=== PATIENT | female | born 1985 | race Caucasian/White ===

== ENCOUNTER → 2017-04-22 | Outpatient (CLI) | payer BC ==
--- NOTE | 2017-04-22 11:11 | USB ---
Reason for exam: clinical finding. History: Family history of breast cancer in sister at age 30, breast cancer in mother at age 29, and breast cancer in 2 maternal aunts. Took hormonal contraceptives for 4 years beginning at age 17. Indicated problem(s): palpable abnormality in the right breast. Physical Findings: Nurse did not find any significant physical abnormalities on exam. US Breast BILAT Right breast ultrasound includes all four quadrants, the retroareolar region and axilla. Finding demonstrates no cystic or solid lesion seen. Left breast ultrasound includes all four quadrants, the retroareolar region and axilla. Finding demonstrates no cystic or solid lesion seen. These results were verbally communicated with the patient and result sheet given to the patient on 04/22/17. ASSESSMENT: Negative, BI-RAD 1 RECOMMENDATION: Breast MRI of both breasts in 2 years. (MRI of breasts every 2 years. Pelvic ultrasound yearly)
== END | disposition home or self-care (01) ==
LOC: RADUSWWP 09:39
PROVIDERS: ATTEND Family Medicine
DX: N63 Unspecified lump in breast (principal)

== ENCOUNTER → 2017-06-07 | Outpatient (CLI) | payer BC ==
--- NOTE | 2017-06-13 22:18 | BMR ---
EXAMINATION TYPE: MR breast BILAT wo/w con DATE OF EXAM: 06/07/2017 COMPARISON: Bilateral complete breast ultrasound dated 04/22/2017 and bilateral breast MRI dated 2013 as well as digital mammogram dated 10/16/2013. HISTORY: Family hx of breast ca, dense breast tissue. Palpable area at the 5:00 position palpated 2-3 years ago with prior negative MRI. After discussion with the physician's secretary to board of commissioners on 06/12/2017 it i s noted within the patient's chart she has a history of left-sided mastoiditis and breast-feeding. It is presumed that the patient is right-sided breast feeding only. TECHNIQUE: A series of fat and water weighted images in the long and short axis views of both breasts are obtained in conjunction with dynamic contrast MRI with subtraction technique. The patient was i njected with 6.5 mL intravenous Gadavist gadolinium contrast. Three-dimensional and additional post processing imaging is created on independent workstation and reviewed during official interpretation of this study. FINDINGS: The breasts are composed of heterogenous fibroglandular tissue and there is asymmetric (rig ht greater than left) marked background parenchymal enhancement, which limits sensitivity of the exam ination. Bilateral retroareolar ductal ectasia is demonstrated. No suspicious foci of enhancement are seen within the left breast. No suspicious left breast nonmass enhancement or mass enhancement. No evidence of intramammary, axillary, or internal mammary adenopath y. Marked enhancement of the right breast is thought to relate to unilateral breast-feeding and although no discrete focal masses seen sensitivity is markedly limited. IMPRESSION: BI-RADS 3- Probably benign finding. Extremely asymmetric unilateral background parenchymal enhancemen t within the right breast that is thought to be attributable to right breast feeding as the patient h as a history of left-sided mastitis and may not be breast-feeding on the left. This pattern can also be seen and unilateral diffuse breast cancer and therefore follow up MRI in 6 months is recommended o r sooner if cessation of breast-feeding occurs. Additionally if there is palpable abnormality diagnos tic mammogram and/or ultrasound could be performed.
== END ==
LOC: RADMRIMAIN 16:40
PROVIDERS: ATTEND Surgery
DX: Z08 Encounter for follow-up examination after completed treatment for malignant neoplasm (principal); Z80.3 Family history of malignant neoplasm of breast
CPT/HCPCS: 77059; 0159T; A9581

== ENCOUNTER → 2018-06-14 | Outpatient (CLI) | payer BC ==
--- NOTE | 2018-06-14 09:07 | BMR ---
EXAMINATION TYPE: MR breast BILAT wo/w con DATE OF EXAM: 06/14/2018 COMPARISON: Prior bilateral breast MRI June 07, 2017 BI-RADS 3. Complete bilateral breast ultras ound April 22, 2017 BI-RADS 1 HISTORY: Mastodynia per order. Prior abnormal mammogram left breast with family history of breast can cer and mom and sister as per patient. CONTRAST: Multiplanar, multisequence images of the breasts were acquired utilizing 6.5 mL intravenous Gadavist gadolinium contrast. TECHNIQUE: A series of fat and water weighted images in the long and short axis views of both breasts are obtained in conjunction with dynamic contrast MRI with subtraction technique. Three-dimensional and additional postprocessing imaging is created on independent workstation and reviewed during offi cial interpretation of this study. FINDINGS: Heterogeneously dense fibroglandular tissue is redemonstrated throughout both breasts. On c urrent study there is fairly symmetric moderate to marked background enhancement most prominent anter iorly in both breasts. There is marked interval improvement in retroareolar ductal ectasia on current study. Occasional tiny punctate cyst subareolar region is present bilaterally and T2-weighted images . There is more symmetric appearance to bilateral breast on current study. No suspicious intramammary adenopathy is seen on delayed post contrast images. No fat containing masses are evident. With regard to the right breast there is no suspicious enhancing mass or masslike enhancement. Chest wall is intact. Benign right axillary lymph nodes are present. With regard to the left breast there is no suspicious skin thickening. No enhancing mass is evident. No suspicious axillary adenopathy is seen. Benign subcentimeter left axillary lymph nodes are present . No suspicious incidental finding seen. IMPRESSION: No MRI evidence for invasive malignancy in either breast. BI-RADS 2 benign findings right breast BI-RADS 2 benign findings left breast Recommendation: Consider annual MRI surveillance based on patient's risk factors.
== END ==
LOC: RADMRIMAIN 07:38
PROVIDERS: ATTEND Family Medicine
DX: N64.4 Mastodynia (principal)
CPT/HCPCS: 77059; 0159T; A9581

== ENCOUNTER → 2019-08-31 | Outpatient (CLI) | payer OTHER ==
[2019-08-31 07:38] LABS: Basophils % (A) 0 %; Eosinophils # (A) 0.1 k/uL (0-0.7); Eosinophils % (A) 1 %; HCT 33.8 % (34.0-46.0); HGB 11.1 gm/dL (11.4-16.0); Lymphocytes # (A) 1.8 k/uL (1.0-4.8); Lymphocytes % (A) 29 %; MCH 27.4 pg (25.0-35.0); MCHC 32.7 g/dL (31.0-37.0); MCV 83.7 fL (80.0-100.0); Monocytes # (A) 0.4 k/uL (0-1.0); Monocytes % (A) 6 %; Neutrophils # (A) 3.7 k/uL (1.3-7.7); Neutrophils % (A) 62 %; Platelet Count 195 k/uL (150-450); RBC 4.04 m/uL (3.80-5.40); RDW 13.2 % (11.5-15.5); WBC 6.1 k/uL (3.8-10.6)
[2019-08-31 13:22] LABS: Estradiol 55.3 pg/mL; Luteinizing Hormone 16.2 mIU/mL
[2019-08-31 13:34] LABS: Follicle Stimulating Hormone 8.4 mIU/mL
[2019-08-31 13:36] LABS: Folate, Serum 9.5 ng/mL
[2019-08-31 13:37] LABS: % Iron Saturation 6.55 (12.00-45.00); African American GFR (CKD) 97.4 (60.0-200.0); Albumin 4.3 g/dL (3.80-4.90); Albumin/Globulin Ratio 2.05 (1.60-3.17); Anion Gap 7.7 mmol/L (4.00-12.00); Calcium 9.4 mg/dL (8.7-10.3); Carbon Dioxide 26.3 mmol/L (21.6-31.8); Chol/HDL Ratio 2.6; Ferritin 4.6 ng/mL (10.0-291.0); Globulin 2.1 g/dL (1.6-3.3); Potassium 4.5 mmol/L (3.5-5.5); Total Bilirubin 0.3 mg/dL (0.3-1.2); Total Protein 6.4 g/dL (6.2-8.2)
[2019-08-31 15:20] LABS: Hemoglobin A1C 5.5 % (4.0-6.0)
== END | disposition home or self-care (01) ==
LOC: LABWHC1 07:02
PROVIDERS: ATTEND Nurse Practitioner Family
DX: Z00.00 Encounter for general adult medical examination without abnormal findings (principal); N92.6 Irregular menstruation, unspecified; N89.8 Other specified noninflammatory disorders of vagina; R63.4 Abnormal weight loss
CPT/HCPCS: 36415; 80053; 80061; 82306; 82607; 82670; 82728; 82746; 83001; 83002; 83036; 83540; 83550; 84144; 84439; 84443; 85025

== ENCOUNTER 2020-02-04 06:07 | Emergency (ER) | payer OTHER ==
[2020-02-04 06:11] VITALS: BP 127/83; PULSE 91; RESP 20; TEMP 98.1
[2020-02-04] MEDS ORDERED: KETOROLAC 60 MG/2 ML VIAL IM STA (06:34)
[2020-02-04] MEDS ORDERED: ORPHENADRINE 30 MG/ML 2 ML VIAL IM STA (06:34)
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
[2020-02-04] MEDS ORDERED: ACET/COD 300 MG/30 MG STARTER PACK 6 TAB BTL PO STA (07:34)
== END 2020-02-04 07:48 | disposition home or self-care (01) ==
LOC: EC 06:07
DX: S13.4XXA Sprain of ligaments of cervical spine, initial encounter (principal); M62.838 Other muscle spasm; Z87.828 Personal history of other (healed) physical injury and trauma; Z87.891 Personal history of nicotine dependence; Z88.0 Allergy status to penicillin; Y04.2XXA Assault by strike against or bumped into by another person, initial encounter; Y92.009 Unspecified place in unspecified non-institutional (private) residence as the place of occurrence of the external cause; Y07.12 Biological mother, perpetrator of maltreatment and neglect
CPT/HCPCS: 72125; 70450; 96372 ×2; 99284; J2360; J1885

== ENCOUNTER → 2020-03-06 | Outpatient (CLI) | payer OTHER ==
--- NOTE | 2020-03-06 09:03 | US ---
EXAMINATION TYPE: US thyroid st tissue head/neck DATE OF EXAM: 03/06/2020 COMPARISON: NONE CLINICAL HISTORY: R59.0 Cervical lymphadenopathy. Enlarged lymph nodes. Two lymph nodes seen and the left neck and one on the right all measuring subcentimeter. IMPRESSION: Subcentimeter neck adenopathy.
== END | disposition home or self-care (01) ==
LOC: RADUSWWP 07:13
PROVIDERS: ATTEND Family Medicine
DX: R59.0 Localized enlarged lymph nodes (principal)
CPT/HCPCS: 76536

== ENCOUNTER → 2021-03-27 | Outpatient (CLI) | payer OTHER ==
--- NOTE | 2021-04-01 14:34 | MM ---
Reason for exam: screening (asymptomatic). Last mammogram was performed 7 years and 5 months ago. History: Family history of breast cancer in sister at age 30, breast cancer in mother at age 29, and breast cancer in 2 maternal aunts. Took hormonal contraceptives for 4 years beginning at age 17. Physical Findings: A clinical breast exam by your physician is recommended on an annual basis and results should be correlated with mammographic findings. MG 3D Screening Mammo W/Cad Bilateral CC and MLO view(s) were taken. Prior study comparison: October 16, 2013, left diagnostic mammogram w/CAD. February 14, 2013, [facility] DIGITAL LEFT BREAST MAMMOGRAM w/CAD. February 08, 2013, bilateral digital screening mammo w/CAD. The breast tissue is heterogeneously dense. This may lower the sensitivity of mammography. Asymmetry left superior breast is unchanged. Given dense tissue and patient's family history, recommend supplementary ultrasound. No significant changes when compared with prior studies. ASSESSMENT: Incomplete: need additional imaging evaluation, BI-RAD 0 RECOMMENDATION: Ultrasound of both breasts. [facility] will attempt to contact patient to return for ultrasound.
== END | disposition home or self-care (01) ==
LOC: RADMAMWWP 08:05
PROVIDERS: ATTEND Family Medicine
DX: Z12.31 Encounter for screening mammogram for malignant neoplasm of breast (principal); Z80.3 Family history of malignant neoplasm of breast; Z79.3 Long term (current) use of hormonal contraceptives
CPT/HCPCS: 77063; 77067

== ENCOUNTER → 2021-04-20 | Outpatient (CLI) | payer OTHER ==
--- NOTE | 2021-04-24 12:05 | USB ---
Reason for exam: additional evaluation requested from abnormal screening. History: Family history of breast cancer in sister at age 26, breast cancer in mother at age 29, and breast cancer in sister at age 30. Took hormonal contraceptives for 4 years beginning at age 17. Physical Findings: Nurse did not find any significant physical abnormalities on exam. US Breast Workup JACY Right complete breast ultrasound includes all four quadrants, the retroareolar region and axilla. Finding demonstrates no cystic or solid lesion seen. Left complete breast ultrasound includes all four quadrants, the retroareolar region and axilla. Finding demonstrates no cystic or solid lesion seen. These results were verbally communicated with the patient and result sheet given to the patient on 04/20/21. ASSESSMENT: Benign, BI-RAD 2 RECOMMENDATION: Routine screening mammogram of both breasts in 1 year.
== END | disposition home or self-care (01) ==
LOC: RADUSWWP 08:09
PROVIDERS: ATTEND Family Medicine
DX: R92.8 Other abnormal and inconclusive findings on diagnostic imaging of breast (principal)

== ENCOUNTER → 2021-08-31 | Outpatient (CLI) | payer OTHER ==
--- NOTE | 2021-08-31 08:42 | US ---
EXAMINATION TYPE: US transvaginal DATE OF EXAM: 08/31/2021 COMPARISON: NONE CLINICAL HISTORY: DUB N93.8. Pt states abnormal vaginal bleeding x 2 months TECHNIQUE: Transvaginal (TV). Transvaginal sonographic images of the pelvis were acquired. Date of LMP: 08/26/2021 EXAM MEASUREMENTS: Uterus: 10.7 x 4.8 x 5.8 cm Endometrial Stripe: 0.9 cm Right Ovary: 4.2 x 3.5 x 2.0 cm Left Ovary: 3.5 x 2.8 x 2.5 cm 1. Uterus: Anteverted Heterogeneous 2. Endometrium: Heterogeneous, borders difficult to delineate 3. Right Ovary: wnl 4. Left Ovary: wnl 5. Bilateral Adnexa: wnl 6. Posterior cul-de-sac: wnl IMPRESSION: Myometrial heterogeneity may reflect small leiomyomatous change. Otherwise unremarkable study.
== END | disposition home or self-care (01) ==
LOC: RADUSWWP 08:10
PROVIDERS: ATTEND Obstetrics & Gynecology
DX: N85.8 Other specified noninflammatory disorders of uterus (principal)
CPT/HCPCS: 76830

== ENCOUNTER → 2021-10-15 | Outpatient (CLI) | payer OTHER ==
[~2021-10-15] MED LIST: IRON SUCROSE 100 MG in SODIUM CHLORIDE 0.9% 100 ML IVPB NR; SODIUM CHLORIDE 0.9% 500 ML 500 ML in EMPTY BAG 1 BAG IV PRN
[2021-10-15 08:56] VITALS: BP 116/74; PULSE 74; RESP 14; TEMP 99
== END ==
LOC: EDSTATUS 07:30 → PROCWHC3 07:33
PROVIDERS: ATTEND Family Medicine
DX: D64.9 Anemia, unspecified (principal); E78.5 Hyperlipidemia, unspecified; F17.210 Nicotine dependence, cigarettes, uncomplicated; F41.1 Generalized anxiety disorder; Z88.0 Allergy status to penicillin
CPT/HCPCS: 96365; J1756

== ENCOUNTER → 2022-04-13 | Outpatient (CLI) | payer OTHER ==
--- NOTE | 2022-04-14 12:49 | MM ---
Reason for Exam: Screening (asymptomatic). Last screening mammogram was performed 12 month(s) ago. Patient History: Menarche at age 12. First Full-Term at age 19. Patient has history of breast feeding. Patient tested for BRCA1 outcome was negative. Patient tested for BRCA2 outcome was negative. Hormonal Contraceptives for 4 years from age 17 until age 21. Sister (yamel) had breast cancer, bilateral, age 26. Sister had breast cancer, age 33. Mother had breast cancer, age 29. Sister (yamel) tested for BRCA1 outcome was negative. Sister (yamel) tested for BRCA2 outcome was negative. Last menstrual period: 04/12/2022 Risk Values: Jing 5 year model risk: 1.6%. NCI Lifetime model risk: 43.1%. Prior Study Comparison: 02/14/2013 Left Diagnostic Mammogram, [facility]. 10/16/2013 Left Diagnostic Mammogram, [facility]. 03/27/2021 Bilateral Screening Mammogram, [facility]. Tissue Density: The breast tissue is heterogeneously dense. This may lower the sensitivity of mammography. Findings: Analyzed By CAD. There is no suspicious group of microcalcifications or new suspicious mass in either breast. Overall Assessment: Negative, BI-RAD 1 Management: Screening Mammogram of both breasts in 1 year. A clinical breast exam by your physician is recommended on an annual basis and results should be correlated with mammographic findings. Electronically signed and approved by: Franco Gonzalez M.D. Radiologis
== END | disposition home or self-care (01) ==
LOC: RADMAMWWP 13:29
PROVIDERS: ATTEND Family Medicine
DX: Z12.31 Encounter for screening mammogram for malignant neoplasm of breast (principal); Z78.0 Asymptomatic menopausal state; Z80.3 Family history of malignant neoplasm of breast
CPT/HCPCS: 77063; 77067

== ENCOUNTER 2022-10-18 09:51 | Emergency (ER) | payer OTHER ==
[2022-10-18 09:55] VITALS: RESP 18; TEMP 98.2
[2022-10-18 11:34] LABS: Basophils % (A) 0 %; Eosinophils % (A) 0 %; HCT 34.1 % (34.0-46.0); HGB 11.4 gm/dL (11.4-16.0); Lymphocytes # (A) 1.4 k/uL (1.0-4.8); Lymphocytes % (A) 22 %; MCH 27.7 pg (25.0-35.0); MCHC 33.5 g/dL (31.0-37.0); MCV 82.8 fL (80.0-100.0); Mean Platelet Volume 7.9; Monocytes # (A) 0.2 k/uL (0-1.0); Monocytes % (A) 4 %; Neutrophils # (A) 4.6 k/uL (1.3-7.7); Neutrophils % (A) 72 %; Platelet Count 143 k/uL (150-450); RBC 4.12 m/uL (3.80-5.40); RDW 13.7 % (11.5-15.5); WBC 6.4 k/uL (3.8-10.6)
[2022-10-18 11:40] LABS: Appearance,Urine Clear (Clear); Bilirubin,Urine Negative (Negative); Blood,Urine Small (Negative); Color,Urine Colorless; Glucose,Urine (UA) Negative (Negative); Ketones,Urine Negative (Negative); Leukocyte Esterase,Urine Moderate (Negative); Mucus,Urine Rare /hpf; Nitrite,Urine Negative (Negative); PH, Urine 6.5 (5.0-8.0); Protein,Urine Negative (Negative); RBC,Urine 1 /hpf (0-5); Specific Gravity,Urine 1.003 (1.001-1.035); Squamous Epithelial Cell,Urine <1 /hpf (0-4); Urobilinogen,Urine <2.0 mg/dL (<2.0); WBC,Urine 11 /hpf (0-5)
[2022-10-18 11:45] LABS: ALT 25 U/L (4-34); AST 29 U/L (14-36); African American GFR (CKD) >90 (>60 ml/min/1.73 sqM); Albumin 4.7 g/dL (3.5-5.0); Alkaline Phosphatase 49 U/L (38-126); Anion Gap 8 mmol/L; Blood Urea Nitrogen 11 mg/dL (7-17); Calcium 9.2 mg/dL (8.4-10.2); Carbon Dioxide 25 mmol/L (22-30); Chloride 106 mmol/L (98-107); Glucose 95 mg/dL (74-99); Non-African American GFR(CKD) >90 (>60 ml/min/1.73 sqM); Sodium 139 mmol/L (137-145); Total Bilirubin 0.4 mg/dL (0.2-1.3); Total Protein 7.7 g/dL (6.3-8.2)
[2022-10-18 12:16] LABS: Partial Thromboplastin Time 22.4 sec (22.0-30.0); Prothrombin Time 10.6 sec (9.0-12.0)
[2022-10-18] MEDS ORDERED: SULFAMETHOX-TMP 800-160MG 1 EACH TAB PO STA (13:15)
--- NOTE | 2022-10-18 13:17 | ED ---
General Adult HPI - General Chief complaint: Urogenital Stated complaint: hematuria - [facility] Time Seen by Provider: 10/18/22 10:40 Source: patient, RN notes reviewed, old records reviewed Mode of arrival: ambulatory Limitations: no limitations - History of Present Illness Initial comments: Patient is a 37-year-old female who presents emergency Department with mics Hematuria. Was sent from urgent care. Has had been having issues of either vaginal bleeding or lead in her urine for the last year with unknown reason. Has seen urology, [facility], PCP with no clear answers. States she's been having burning for the last week or so that has gotten worse. Was previous on antibiotics but not have full resolution of symptoms at the end. Presents for further evaluation at this time. Urine dipstick at urgent care revealed hematu kristal. They sent her here for further evaluation. She denies any abdominal pain, cramping, vaginal discharge or bleeding. Denies any chest pain or shortness of breath. Denies any nausea or vomiting. Denies diarrhea. Endorses a burning sensation when she presents here urethra. No other complaints at this time. Does not believe she is . Presents For further evaluation at this time. - Related Data Previous Rx's Medication Instructions Recorded Sulfamethox-Tmp 800-160Mg [Bactrim 1 tab PO Q12HR 10 Days #20 tab 10/18/22 DS 800-160 mg] Allergies Allergy/AdvReac Type Severity Reaction Status Date / Time Penicillins Allergy Rash/Hives Verified 10/18/22 11:13 Review of Systems ROS Statement: Those systems with pertinent positive or pertinent negative responses have been documented in the HPI. Review of Systems: CONST: Denies fever EYES: Denies blurry vision ENT: Denies nasal congestion C/V: Denies Chest pain RESP: Denies shortness of breath GI: Denies abdominal pain : Endorses dysuria SKIN: Denies rash. MSK: Denies joint pain. NEURO: Denies headache ROS Other: All systems not noted in ROS Statement are negative. Past Medical History Additional Past Medical History / Comment(s): lt breast mass to f/u after delivery, anemia History of Any Multi-Drug Resistant Organisms: None Reported Past Surgical History: Appendectomy, Section, Tubal Ligation Past Anesthesia/Blood Transfusion Reactions: Postoperative Nausea & Vomiting (PONV) Past Psychological History: Depression Smoking Status: Vaper Past Alcohol Use History: Occasional Past Drug Use History: None Reported - Past Family History Mother Family Medical History: Cancer Additional Family Medical History / Comment(s): breast Sister(s) Family Medical History: Cancer Additional Family Medical History / Comment(s): breast, cervical General Exam - General Exam Comments Initial Comments: General: Appears in no acute distress. HEAD: Normal with no signs of head trauma. EYES: PERRLA, EOMI, conjunctiva normal, no discharge. ENT: Hearing grossly intact, normal oropharynx. RESPIRATORY: Clear breath sounds bilaterally. No wheezes, rales, or rhonchi. C/V: Regular rate and rhythm. S1 and S2 auscultated, no edema, peripheral pulses 2+ and intact throughout ABD: Abd is soft, nontender, nondistended EXT: Normal range of motion, no obvious deformity SKIN: No rashes or lesions observed on exposed skin. NEURO: Alert and oriented x 4. Limitations: no limitations Course Vital Signs 10/18/22 10/18/22 10/18/22 09:52 12:00 13:24 Temperature 98.2 F 98.2 F Pulse Rate 82 80 75 Respiratory 18 18 18 Rate Blood Pressure 132/83 124/78 130/76 O2 Sat by Pulse 99 98 99 Oximetry Medical Decision Making - Medical Decision Making Based on patient's presentation and physical exam, I'm concerned for possible UTI for the patient. Cannot rule out other etiology at this time including possible cystitis. Basic laboratory studies, urinalysis will be obtained. Vital signs within Normal limits. We did discuss that she is in chronic symptoms and are unlikely to discover why on this visit. She will require follow-up. She was in agreement this plan. Laboratory studies were remarkable for a urinalysis with a small amount of blood, as well as no signs of UTI including moderate leukocyte esterase and 11 wbc's. Patient is not . Remainder of the labs are within acceptable limits. I discussed the workup with the patient. I would like to start the patient on antibiotics, Bactrim at this time for her UTI which she was in agreement with. Denies any other complaints at this time. I discussed she requires follow-up with her PCP, urologist, [facility]. She was in agreement this plan. I will provide the patient with a prescription for Bactrim. I instructed the patient to follow up with their PCP in the next 1-3 days. I explained that the patient should return to the emergency department if they experience any worsening symptoms. Strict return precautions were discussed with the patient. The patient expressed understanding of these instructions. I answered all questions that the patient had. The patient was discharged home in good condition with their prescriptions and follow up information. Was pt. sent in by a medical professional or institution (, [facility], [facility], urgent care, hospital, or fci...) When possible be specific @ -Urgent care for evaluation for hematuria. Did you speak to anyone other than the patient for history (EMS, parent, family, police, friend...)? What history was obtained from this source @ -No Did you review nursing and triage notes (agree or disagree)? Why? @ -I reviewed and agree with nursing and triage notes Were old charts reviewed (outside hosp., previous admission, EMS record, old EKG, old radiological studies, urgent care reports/EKG's, fci records)? Report findings @ -No old charts were reviewed Differential Diagnosis (chest pain, altered mental status, abdominal pain women, abdominal pain men, vaginal bleeding, weakness, fever, dyspnea, syncope, headache, dizziness, GI bleed, back pain, seizure, CVA, palpatations, mental health)? @ -, asymptomatic hematuria, cystitis, UTI. This list is not all inclusive. EKG interpreted by me (3pts min.). @ -None done X-rays interpreted by me (1pt min.). @ -None done CT interpreted by me (1pt min.). @ -None done U/S interpreted by me (1pt. min.). @ -None done What testing was considered but not performed or refused? (CT, X-rays, U/S, la bs)? Why? @ -None What meds were considered but not given or refused? Why? @ -None Did you discuss the management of the patient with other professionals (professionals i.e. [facility] Pedro, [facility], lab, RT, psych nurse, high school social studies tutor, newborn photographer, teacher, mounted police officer, heel caser)? Give summary @ -No Was smoking cessation discussed for >3mins.? @ -No Was critical care preformed (if so, how long)? @ -No Were there social determinants of health that impacted care today? How? (Homelessness, low income, unemployed, alcoholism, drug addiction, transportation, low edu. Level, literacy, decrease access to med. care, snf, rehab)? @ -No Was there de-escalation of care discussed even if they declined (Discuss DNR or withdrawal of care, Hospice)? DNR status @ -No What co-morbidities impacted this encounter? (DM, HTN, Smoking, COPD, CAD, Cancer, CVA, ARF, Chemo, Hep., AIDS, mental health diagnosis, sleep apnea, morbid obesity)? @ -Chronic hematuria of unknown etiology Was patient admitted / discharged? Hospital course, mention meds given and route, prescriptions, significant lab abnormalities, going to OR and other pertinent info. @ -Discharged home. See above for emergency Department course. Undiagnosed new problem with uncertain prognosis? @ -No Drug Therapy requiring intensive monitoring for toxicity (Heparin, Nitro, Insulin, Cardizem)? @ -No Were any procedures done? @ -No Diagnosis/symptom? @ -UTI Acute, or Chronic, or Acute on Chronic? @ -Acute Uncomplicated (without systemic symptoms) or Complicated (systemic symptoms)? @ -Uncomplicated Side effects of treatment? @ -No Exacerbation, Progression, or Severe Exacerbation? @ -No Poses a threat to life or bodily function? How? (Chest pain, USA, GA, pneumonia, PE, COPD, DKA, ARF, appy, cholecystitis, CVA, Diverticulitis, Homicidal, Suicidal, threat to staff... and all critical care pts) @ -No Diagnosis/symptom? @ -Hematuria Acute, or Chronic, or Acute on Chronic? @ -Chronic Uncomplicated (without systemic symptoms) or Complicated (systemic symptoms)? @ -Uncomplicated Side effects of treatment? @ -none Exacerbation, Progression, or Severe Exacerbation] @ -no Poses a threat to life or bodily function? @ -no - Lab Data Result diagrams: 10/18/22 11:01 10/18/22 11:01 Lab Results 10/18/22 10/18/22 10/18/22 Range/Units 11:01 11: 11: WBC 6.4 (3.8-10.6) k/uL RBC 4.12 (3.80-5.40) m/uL Hgb 11.4 (11.4-16.0) gm/dL Hct 34.1 (34.0-46.0) % MCV 82.8 (80.0-100.0) fL MCH 27.7 (25.0-35.0) pg MCHC 33.5 (31.0-37.0) g/dL RDW 13.7 (11.5-15.5) % Plt Count 143 L (150-450) k/uL MPV 7.9 Neutrophils % 72 % Lymphocytes % 22 % Monocytes % 4 % Eosinophils % 0 % Basophils % 0 % Neutrophils # 4.6 (1.3-7.7) k/uL Lymphocytes # 1.4 (1.0-4.8) k/uL Monocytes # 0.2 (0-1.0) k/uL Eosinophils # 0.0 (0-0.7) k/uL Basophils # 0.0 (0-0.2) k/uL PT 10.6 (9.0-12.0) sec INR 1.0 (<1.2) APTT 22.4 (22.0-30.0) sec Sodium (137-145) mmol/L Potassium (3.5-5.1) mmol/L Chloride (98-107) mmol/L Carbon Dioxide (22-30) mmol/L Anion Gap mmol/L BUN (7-17) mg/dL Creatinine (0.52-1.04) mg/dL Est GFR (CKD-EPI)AfAm (>60 ml/min/1.73 sqM) Est GFR (CKD-EPI)NonAf (>60 ml/min/1.73 sqM) Glucose (74-99) mg/dL Calcium (8.4-10.2) mg/dL Total Bilirubin (0.2-1.3) mg/dL AST (14-36) U/L ALT (4-34) U/L Alkaline Phosphatase (38-126) U/L Total Protein (6.3-8.2) g/dL Albumin (3.5-5.0) g/dL Urine Color Colorless Urine Appearance Clear (Clear) Urine pH 6.5 (5.0-8.0) Ur Specific Arnot 1.003 (1.001-1.035) Urine Protein Negative (Negative) Urine Glucose (UA) Negative (Negative) Urine Ketones Negative (Negative) Urine Blood Small H (Negative) Urine Nitrite Negative (Negative) Urine Bilirubin Negative (Negative) Urine Urobilinogen <2.0 (<2.0) mg/dL Ur Leukocyte Esterase Moderate H (Negative) Urine RBC 1 (0-5) /hpf Urine WBC 11 H (0-5) /hpf Ur Squamous Epith Cells <1 (0-4) /hpf Urine Mucus Rare H (None) /hpf Urine HCG, Qual (Not Detectd) 10/18/22 10/18/22 Range/Units 11:01 11:01 WBC (3.8-10.6) k/uL RBC (3.80-5.40) m/uL Hgb (11.4-16.0) gm/dL Hct (34.0-46.0) % MCV (80.0-100.0) fL MCH (25.0-35.0) pg MCHC (31.0-37.0) g/dL RDW (11.5-15.5) % Plt Count (150-450) k/uL MPV Neutrophils % % Lymphocytes % % Monocytes % % Eosinophils % % Basophils % % Neutrophils # (1.3-7.7) k/uL Lymphocytes # (1.0-4.8) k/uL Monocytes # (0-1.0) k/uL Eosinophils # (0-0.7) k/uL Basophils # (0-0.2) k/uL PT (9.0-12.0) sec INR (<1.2) APTT (22.0-30.0) sec Sodium 139 (137-145) mmol/L Potassium 4.0 (3.5-5.1) mmol/L Chloride 106 (98-107) mmol/L Carbon Dioxide 25 (22-30) mmol/L Anion Gap 8 mmol/L BUN 11 (7-17) mg/dL Creatinine 0.65 (0.52-1.04) mg/dL Est GFR (CKD-EPI)AfAm >90 (>60 ml/min/1.73 sqM) Est GFR (CKD-EPI)NonAf >90 (>60 ml/min/1.73 sqM) Glucose 95 (74-99) mg/dL Calcium 9.2 (8.4-10.2) mg/dL Total Bilirubin 0.4 (0.2-1.3) mg/dL AST 29 (14-36) U/L ALT 25 (4-34) U/L Alkaline Phosphatase 49 (38-126) U/L Total Protein 7.7 (6.3-8.2) g/dL Albumin 4.7 (3.5-5.0) g/dL Urine Color Urine Appearance (Clear) Urine pH (5.0-8.0) Ur Specific Arnot (1.001-1.035) Urine Protein (Negative) Urine Glucose (UA) (Negative) Urine Ketones (Negative) Urine Blood (Negative) Urine Nitrite (Negative) Urine Bilirubin (Negative) Urine Urobilinogen (<2.0) mg/dL Ur Leukocyte Esterase (Negative) Urine RBC (0-5) /hpf Urine WBC (0-5) /hpf Ur Squamous Epith Cells (0-4) /hpf Urine Mucus (None) /hpf Urine HCG, Qual Not Detected (Not Detectd) Disposition Clinical Impression: UTI (urinary tract infection), Hematuria Disposition: HOME SELF-CARE Condition: Good Instructions (If sedation given, give patient instructions): Urinary Tract Infection in Women (ED) Prescriptions: Sulfamethox-Tmp 800-160Mg [Bactrim DS 800-160 mg] 1 tab PO Q12HR 10 Days #20 tab Is patient prescribed a controlled substance at d/c from ED?: No Referrals: Valentín Diaz DO [Primary Care Provider] - 1-2 days Time of Disposition: 13:00
[2022-10-18 13:24] VITALS: BP 130/76; PULSE 75
== END 2022-10-18 13:24 | disposition home or self-care (01) ==
LOC: EC 09:51
DX: N39.0 Urinary tract infection, site not specified (principal); F32.A Depression, unspecified; F17.290 Nicotine dependence, other tobacco product, uncomplicated; Z88.0 Allergy status to penicillin
CPT/HCPCS: 36415; 80053; 81001; 81025; 85025; 85610; 85730; 87077; 87086; 87186; 99283

== ENCOUNTER → 2024-02-02 | Outpatient (CLI) | payer OTHER ==
--- NOTE | 2024-02-03 11:28 | CA ---
Transthoracic Echo Report Name: Jolanta Pelayo Age: 38 Gender: F : 1985 Exam Date: 02/02/2024 15:21 Exam Location: [facility] Ht (in): 66 Wt (lb): 148 Ordering Physician: Valentín Diaz DO Attending/Referring Phys: Valentín Diaz DO Polisher [employer] Sander Domonique Oconnor, RDLATOYA Procedure CPT: Indications: R00.2 palpitations Cardiac Hx: Technical Quality: Good Contrast 1: Total Dose (mL): Contrast 2: Total Dose (mL): MEASUREMENTS (Male / Female) Normal Values 2D ECHO LV Diastolic Diameter PLAX 4.0 cm 4.2 - 5.9 / 3.9 - 5.3 cm LV Systolic Diameter PLAX 2.5 cm IVS Diastolic Thickness 0.8 cm 0.6 - 1.0 / 0.6 - 0.9 cm LVPW Diastolic Thickness 0.9 cm 0.6 - 1.0 / 0.6 - 0.9 cm LV Relative Wall Thickness 0.4 RV Internal Dim ED PLAX 1.9 cm LA Systolic Diameter LX 2.9 cm 3.0 - 4.0 / 2.7 - 3.8 cm LV Diastolic Volume MOD BP 56.9 cm??? 67 - 155 / 56 - 104 cm??? LV Systolic Volume MOD BP 23.2 cm??? 22 - 58 / 19 - 49 cm??? LV Ejection Fraction MOD BP 59.1 % >= 55 % LV Diastolic Volume MOD 4C 57.9 cm??? LV Systolic Volume MOD 4C 24.1 cm??? LV Ejection Fraction MOD 4C 58.5 % LV Diastolic Length 4C 7.9 cm LV Systolic Length 4C 6.4 cm LV Diastolic Volume MOD 2C 52.3 cm??? LV Systolic Volume MOD 2C 22.1 cm??? LV Ejection Fraction MOD 2C 57.8 % LV Diastolic Length 2C 7.3 cm LV Systolic Length 2C 6.3 cm LA Volume 44.6 cm??? 18 - 58 / 22 - 52 cm??? LA Volume Index 25.1 cm???/m??? 16 - 28 cm???/m??? M-MODE Aortic Root Diameter MM 2.2 cm LA Systolic Diameter MM 2.4 cm LA Ao Ratio MM 1.0 DOPPLER AV Peak Velocity 123.1 cm/s AV Peak Gradient 6.1 mmHg MV Area PHT 2.6 cm??? Mitral E Point Velocity 76.4 cm/s Mitral A Point Velocity 44.3 cm/s Mitral E to A Ratio 1.7 MV Deceleration Time 288.9 ms TR Peak Velocity 130.4 cm/s TR Peak Gradient 6.8 mmHg FINDINGS Left Ventricle Left ventricular ejection fraction is estimated at 55-60 %. Normal Left ventricular size, wall thickness, systolic function with no obvious regional wall motion abnormalities. Normal Left ventricular diastolic filling pattern. Right Ventricle Normal right ventricular size and function. Right ventricular systolic pressure within normal limits. Right Atrium Normal right atrial size. Left Atrium Normal left atrial size. Mitral Valve Structurally normal mitral valve. Trace mitral regurgitation. No mitral stenosis. Aortic Valve Trileaflet aortic valve. No aortic valve stenosis or regurgitation. Tricuspid Valve Structurally normal tricuspid valve. No tricuspid stenosis. Trace tricuspid regurgitation. Pulmonic Valve Structurally normal pulmonic valve. Trace pulmonic regurgitation. Pericardium No pericardial or pleural effusion. Aorta Normal size aortic root and proximal ascending aorta. CONCLUSIONS Normal LV systolic function Previewed by: Dr. Pierre Hebert MD (Electronically Signed) Final Date: 03 Feb 2024 11:27
== END | disposition home or self-care (01) ==
LOC: RADECHMAIN 15:18
PROVIDERS: ATTEND Family Medicine
DX: R00.2 Palpitations (principal)
CPT/HCPCS: 93306

== ENCOUNTER → 2024-02-06 | Outpatient (CLI) | payer OTHER ==
--- NOTE | 2024-02-28 12:43 | HM ---
HOLTER MONITOR REPORT This is a 72-hour Holter. INDICATION: Palpitations. FINDINGS: Underlying rhythm is sinus with an average heart rate of 75 beats per minute, heart rate varied from 50 beats per minute to 130 beats per minute. This Holter monitor reveals sinus rhythm with Mobitz 1 second-degree heart block. Occasional PVCs were also noted. CONCLUSIONS: This is a 72-hour Holter. It is abnormal and shows Mobitz type 1 second-degree heart block and rare PVCs and sinus tachycardia and sinus bradycardia. MMODL / IJN: [id number] /
== END | disposition home or self-care (01) ==
LOC: RADECHMAIN 07:14
PROVIDERS: ATTEND Family Medicine
DX: I49.3 Ventricular premature depolarization (principal); R00.2 Palpitations; R00.1 Bradycardia, unspecified; R00.0 Tachycardia, unspecified
CPT/HCPCS: 93225; 93226

== ENCOUNTER 2024-03-08 23:40 | Emergency (ER) | payer OTHER ==
[2024-03-08 23:52] VITALS: BP 137/74; PULSE 85; RESP 20; TEMP 98.9
--- NOTE | 2024-03-09 00:01 | ED ---
Chest Pain HPI - General Chief Complaint: Chest Pain Stated Complaint: chest pain Time Seen by Provider: 03/09/24 00:01 Source: patient Mode of arrival: ambulatory Limitations: no limitations - History of Present Illness Initial Comments: 38-year-old female with history of Mobitz type II heart block presenting chief complaint of chest pain. Patient states that she woke up feeling ill today. She has had cough and congestion. This evening she has been complaining of chest pain as well as difficulty breathing when laying down. She - Related Data Previous Rx's Medication Instructions Recorded Sulfamethox-Tmp 800-160Mg [Bactrim 1 tab PO Q12HR 10 Days #20 tab 10/18/22 DS 800-160 mg] Allergies Allergy/AdvReac Type Severity Reaction Status Date / Time Penicillins Allergy Rash/Hives Verified 03/08/24 23:53 Review of Systems ROS Statement: Those systems with pertinent positive or pertinent negative responses have been documented in the HPI. ROS Other: All systems not noted in ROS Statement are negative. Past Medical History Additional Past Medical History / Comment(s): lt breast mass to f/u after delivery, anemia, tachycardia, bradycardia History of Any Multi-Drug Resistant Organisms: None Reported Past Surgical History: Appendectomy, Section, Tubal Ligation Past Anesthesia/Blood Transfusion Reactions: Postoperative Nausea & Vomiting (PONV) Past Psychological History: Depression Smoking Status: Vaper Past Alcohol Use History: Occasional Past Drug Use History: None Reported - Past Family History Mother Family Medical History: Cancer Additional Family Medical History / Comment(s): breast Sister(s) Family Medical History: Cancer Additional Family Medical History / Comment(s): breast, cervical General Exam - General Exam Comments Initial Comments: Visual Physical Exam Vital signs reviewed General: Well-appearing, nontoxic, no acute distress. Head: Normocephalic, atraumatic Eyes: PERRLA, EOMI ENT: Airway patent Chest: Nonlabored breathing Skin: No visual rash, normal skin tone Neuro: Alert and oriented 3 Musculoskeletal: No gross abnormalities Limitations: no limitations Course Vital Signs 03/08/24 23:48 Temperature 98.9 F Pulse Rate 85 Respiratory 20 Rate Blood Pressure 137/74 O2 Sat by Pulse 99 Oximetry Chest Pain MDM - MDM I performed the quick note portion of this visit, electronically signed Cher Starkey PA-C Disposition Clinical Impression: Chest pain Disposition: LEFT AGAINST MEDICAL ADVICE Condition: Undetermined Referrals: Valentín Diaz DO [Primary Care Provider] - 1-2 days
[2024-03-09 00:11] LABS: Basophils # (A) 0.1 k/uL (0-0.2); Basophils % (A) 0 %; Eosinophils # (A) 0.1 k/uL (0-0.7); Eosinophils % (A) 1 %; HCT 35.2 % (34.0-46.0); HGB 11.2 gm/dL (11.4-16.0); Lymphocytes # (A) 1.5 k/uL (1.0-4.8); Lymphocytes % (A) 12 %; MCH 25.7 pg (25.0-35.0); MCHC 31.7 g/dL (31.0-37.0); MCV 81.1 fL (80.0-100.0); Mean Platelet Volume 8.1; Monocytes # (A) 0.5 k/uL (0-1.0); Monocytes % (A) 4 %; Neutrophils # (A) 10.2 k/uL (1.3-7.7); Neutrophils % (A) 81 %; Platelet Count 177 k/uL (150-450); RBC 4.34 m/uL (3.80-5.40); RDW 13.9 % (11.5-15.5); WBC 12.5 k/uL (3.8-10.6)
[2024-03-09 00:24] LABS: ALT 35 U/L (4-34); AST 60 U/L (14-36); African American GFR (CKD) >90 (>60 ml/min/1.73 sqM); Albumin 4.5 g/dL (3.5-5.0); Alkaline Phosphatase 61 U/L (38-126); Anion Gap 6 mmol/L; Blood Urea Nitrogen 12 mg/dL (7-17); Calcium 9.1 mg/dL (8.4-10.2); Carbon Dioxide 25 mmol/L (22-30); Chloride 106 mmol/L (98-107); Glucose 95 mg/dL (74-99); Lipase 183 U/L (23-300); Magnesium 1.9 mg/dL (1.6-2.3); Non-African American GFR(CKD) >90 (>60 ml/min/1.73 sqM); Potassium 4.1 mmol/L (3.5-5.1); Sodium 137 mmol/L (137-145); Total Bilirubin 0.3 mg/dL (0.2-1.3); Total Protein 7.2 g/dL (6.3-8.2)
[2024-03-09 00:42] LABS: INR 0.9 (<1.2); Partial Thromboplastin Time 22.7 sec (22.0-30.0); Prothrombin Time 10.3 sec (10.0-12.5)
--- NOTE | 2024-03-09 02:44 | XR ---
EXAM: XR Chest, 2 Views CLINICAL HISTORY: ITS.REASON XR Reason: Chest Pain TECHNIQUE: Frontal and lateral views of the chest. COMPARISON: No relevant prior studies available. FINDINGS: Lungs: Unremarkable. No consolidation. Pleural space: Unremarkable. No pleural effusion or pneumothorax. Heart: Unremarkable. No cardiomegaly or pulmonary vascular congestion. Bones/joints: No acute fracture. No dislocation. IMPRESSION: No evidence of acute cardiopulmonary disease.
== END 2024-03-09 03:02 | disposition left against medical advice (07) ==
LOC: EC 23:40
DX: R07.89 Other chest pain (principal); F17.290 Nicotine dependence, other tobacco product, uncomplicated; Z88.0 Allergy status to penicillin; Z53.29 Procedure and treatment not carried out because of patient's decision for other reasons
CPT/HCPCS: 36415; 71046; 80053; 83690; 83735; 84484; 85025; 85610; 85730; 93005; 99285